=== PATIENT | female | born 1990 | race Caucasian/White ===

== ENCOUNTER 2024-01-26 18:42 | Inpatient (IN) | payer MEDICAID, OTHER ==
[~2024-01-26] VITALS: Ht 157.5 cm; Wt 71.9 kg
[2024-01-26] MEDS: ACETAMINOPHEN TAB 650MG DOSE (2X325MG) PO ONE (20:30)
[2024-01-26 22:27] LABS: URINE PREG TEST NEGATIVE (NEGATIVE)
[2024-01-26] MEDS: PIPERACILLIN/TAZOBACTAM SOD 3.375 GM in D5W MINI-BAG PLUS 50 ML IV ONE (22:50)
[2024-01-26] MEDS: MORPHINE 2 MG/ML 1ML VIAL IV ONE (22:50)
[2024-01-26 22:55] LABS: BASO % 0.2 % (0.0-1.0); EOS # 0.3 10^3/uL (0.0-0.5); EOS % 1.5 % (0.0-3.0); HEMATOCRIT 34.8 % (36.0-47.0); HEMOGLOBIN 11.1 g/dl (12.0-15.5); LYMPH # 2.7 10^3/uL (1.5-5.0); LYMPH % 15.6 % (24.0-44.0); MEAN CORPUSCULAR HEMOGLOBIN 23.8 pg (27.0-33.0); MEAN CORPUSCULAR HGB CONC 31.9 g/dl (32.0-36.5); MEAN CORPUSCULAR VOLUME 74.5 fl (80.0-96.0); MONO # 1.1 10^3/uL (0.0-0.8); MONO % 6.1 % (2.0-8.0); NEUTROPHILS # 13.4 10^3/uL (1.5-8.5); NEUTROPHILS % 76.1 % (36.0-66.0); PLATELET COUNT, AUTOMATED 364 10^3/uL (150-450); RED BLOOD COUNT 4.67 10^6/uL (4.00-5.40); WHITE BLOOD COUNT 17.5 10^3/uL (4.0-10.0)
[2024-01-26] MEDS ORDERED: ISOVUE-370 76% 100ML VIAL As Ordered ONE (23:21)
[2024-01-26 23:23] LABS: ALBUMIN 3.6 G/DL (3.2-5.2); ALKALINE PHOSPHATASE 100 U/L (46-116); ALT/SGPT 11 U/L (7.0-40); AST/SGOT 9 U/L (<34); BILIRUBIN,TOTAL < 0.2 MG/DL (0.3-1.2); BLOOD UREA NITROGEN 10 MG/DL (9-23); CALCIUM LEVEL 8.5 MG/DL (8.5-10.1); CARBON DIOXIDE LEVEL 27 MMOL/L (20-31); CHLORIDE LEVEL 108 MMOL/L (98-107); CREATININE FOR GFR 0.69 MG/DL (0.55-1.30); GLOMERULAR FILTRATION RATE > 60.0 (>60); GLUCOSE, FASTING 94 MG/DL (60-100); SODIUM LEVEL 139 MMOL/L (136-145); TOTAL PROTEIN 6.5 G/DL (5.7-8.2)
[2024-01-26] MEDS: HYDROmorphone 2 MG TAB PO ONE (23:39)
[2024-01-27] VITALS (8 sets, daily range): BP systolic 118–157; BP diastolic 75–89; TEMP 97.2–97.9; O2SAT 93–98
[2024-01-27] MEDS: KETOROLAC 30 MG/ML 1ML VIAL IV ONE (00:54)
[2024-01-27] MEDS ORDERED: BENA25CA4 PO (02:01)
[2024-01-27] MEDS ORDERED: IBUP-1720 PO (02:01)
[2024-01-27] MEDS ORDERED: ACET-897 PO (02:01)
[2024-01-27] MEDS ORDERED: HOME MED LIST COMPLETE! XX SCH (02:05)
[2024-01-27] MEDS: VANCOMYCIN HCL 1,000 MG, VIAL MATE ADAPTER 1 EACH in D5W 250 ML IV STA (04:15)
[2024-01-27] MEDS ORDERED: VANCOMYCIN HCL 750 MG, VIAL MATE ADAPTER 1 EACH in D5W 250 ML IV SCH (04:20)
[2024-01-27] MEDS: PIPERACILLIN/TAZOBACTAM SOD 4.5 GM in D5W MINI-BAG PLUS 50 ML IV SCH (05:15)
[2024-01-27 06:10] LABS: HEMATOCRIT 33.1 % (36.0-47.0); HEMOGLOBIN 10.5 g/dl (12.0-15.5); MEAN CORPUSCULAR HEMOGLOBIN 23.4 pg (27.0-33.0); MEAN CORPUSCULAR HGB CONC 31.7 g/dl (32.0-36.5); MEAN CORPUSCULAR VOLUME 73.7 fl (80.0-96.0); PLATELET COUNT, AUTOMATED 332 10^3/uL (150-450); RED BLOOD COUNT 4.49 10^6/uL (4.00-5.40)
[2024-01-27] MEDS: NS 1,000 ML IV SCH (06:10)
[2024-01-27] MEDS: VANCOMYCIN HCL 500 MG in D5W MINI-BAG PLUS 100 ML IV ONE (06:10)
[2024-01-27 06:53] LABS: ALBUMIN 3.2 G/DL (3.2-5.2); ALKALINE PHOSPHATASE 77 U/L (46-116); ALT/SGPT 12 U/L (7.0-40); AST/SGOT < 8 U/L (<34); BILIRUBIN,TOTAL 0.3 MG/DL (0.3-1.2); BLOOD UREA NITROGEN 8 MG/DL (9-23); CALCIUM LEVEL 8.1 MG/DL (8.5-10.1); CARBON DIOXIDE LEVEL 26 MMOL/L (20-31); CHLORIDE LEVEL 107 MMOL/L (98-107); CREATININE FOR GFR 0.65 MG/DL (0.55-1.30); GLOMERULAR FILTRATION RATE > 60.0 (>60); GLUCOSE, FASTING 87 MG/DL (60-100); POTASSIUM SERUM 3.6 MMOL/L (3.5-5.1); SODIUM LEVEL 137 MMOL/L (136-145); TOTAL PROTEIN 5.9 G/DL (5.7-8.2)
[2024-01-27] MEDS: KETOROLAC 30 MG/ML 1ML VIAL IV PRN (09:23)
[2024-01-27] MEDS: AMPICILLIN SOD/SULBACTAM SOD 3 GM in D5W MINI-BAG PLUS 100 ML IV SCH (11:00)
[2024-01-27] MEDS ORDERED: VANCOMYCIN HCL 1,000 MG, VIAL MATE ADAPTER 1 EACH in D5W 250 ML IV SCH (14:00)
[2024-01-27] MEDS: CALCIUM CARBONATE 500 MG CHEW U/D PO PRN (15:16)
[2024-01-27] MEDS: MEPIVACAINE HCL 3 % 1.7 ML DENTAL CARTRIDGE (CARBOCAINE) As Ordered ONE (15:28)
[2024-01-27] MEDS: LIDOCAINE 2% W/ EPINEPHRINE 1.7 ML DENTAL INJ As Ordered ONE (15:28)
[2024-01-27] MEDS ORDERED: ONDANSETRON 4MG 2ML VIAL As Ordered ONE (16:26)
[2024-01-27] MEDS ORDERED: MIDAZOLAM INJ 2MG/2ML VIAL As Ordered ONE (16:26)
[2024-01-27] MEDS ORDERED: fentaNYL 100 MCG/2 ML INJECTION As Ordered ONE (16:26)
[2024-01-27] MEDS ORDERED: KETOROLAC 60MG 2ML VIAL As Ordered ONE (16:26)
[2024-01-27] MEDS ORDERED: SUCCINYLCHOLINE 100MG/5ML SYRINGE As Ordered ONE (16:27)
[2024-01-27] MEDS ORDERED: propofoL 200 MG/20 ML VIAL As Ordered ONE (16:27)
[2024-01-27] MEDS ORDERED: LIDOCAINE 2% 100MG/5ML SDV (FOR ANES.) As Ordered ONE (16:29)
[2024-01-27] MEDS ORDERED: ROCURONIUM BROMIDE 50MG/5ML VIAL As Ordered ONE (17:05)
[2024-01-27] MEDS ORDERED: UNASYN 3GM VIAL As Ordered ONE (17:15)
[2024-01-27] MEDS ORDERED: HYDROmorphone HCL 2MG/ML 1ML VIAL As Ordered ONE (17:19)
[2024-01-27] MEDS ORDERED: ACETAMINOPHEN 1000MG 100ML IV BAG As Ordered ONE (17:23)
[2024-01-27] MEDS ORDERED: SUGAMMADEX SODIUM 500 MG/5 ML VIAL (BRIDION) As Ordered ONE (17:25)
[2024-01-27] MEDS ORDERED: oxyCODONE 5MG TAB PO PRN (17:45)
[2024-01-27] MEDS ORDERED: diphenhydrAMINE 50MG/ML VIAL IV PRN (17:45)
[2024-01-27] MEDS ORDERED: fentaNYL 100 MCG/2 ML INJECTION IV PRN (17:45)
[2024-01-27] MEDS ORDERED: BACITRACIN OINTMENT 30GM TUBE As Ordered ONE (17:47)
[2024-01-27] MEDS: METOCLOPRAMIDE INJ 10MG/2ML VIAL IV PRN (18:20)
[2024-01-27] MEDS: ONDANSETRON 4MG 2ML VIAL IV PRN (18:21)
[2024-01-27] MEDS: LR 1,000 ML IV SCH (18:50)
[2024-01-27] MEDS: ACETAMINOPHEN TAB 650MG DOSE (2X325MG) PO PRN (20:46)
[2024-01-27] MEDS: MORPHINE 4 MG/ML 1ML VIAL IV ONE (23:45)
[2024-01-28 04:00] VITALS: BP 124/77; TEMP 97.5; O2SAT 98
[2024-01-28 06:33] LABS: BASO % 0.1 % (0.0-1.0); HEMATOCRIT 36.1 % (36.0-47.0); HEMOGLOBIN 11.4 g/dl (12.0-15.5); LYMPH # 0.9 10^3/uL (1.5-5.0); MEAN CORPUSCULAR HEMOGLOBIN 23.4 pg (27.0-33.0); MEAN CORPUSCULAR HGB CONC 31.6 g/dl (32.0-36.5); MEAN CORPUSCULAR VOLUME 74.1 fl (80.0-96.0); MONO # 0.4 10^3/uL (0.0-0.8); MONO % 2.3 % (2.0-8.0); NEUTROPHILS % 92.1 % (36.0-66.0); PLATELET COUNT, AUTOMATED 378 10^3/uL (150-450); RED BLOOD COUNT 4.87 10^6/uL (4.00-5.40); WHITE BLOOD COUNT 18.4 10^3/uL (4.0-10.0)
[2024-01-28 07:06] LABS: BLOOD UREA NITROGEN 9 MG/DL (9-23); CALCIUM LEVEL 9.2 MG/DL (8.5-10.1); CARBON DIOXIDE LEVEL 26 MMOL/L (20-31); CHLORIDE LEVEL 107 MMOL/L (98-107); GLOMERULAR FILTRATION RATE > 60.0 (>60); GLUCOSE, FASTING 143 MG/DL (60-100); MAGNESIUM LEVEL 1.7 MG/DL (1.8-2.4); POTASSIUM SERUM 4.2 MMOL/L (3.5-5.1); SODIUM LEVEL 139 MMOL/L (136-145)
[2024-01-28 08:23] VITALS: BP 138/98; TEMP 97.5; O2SAT 99
[2024-01-28] MEDS: MORPHINE 4 MG/ML 1ML VIAL IV PRN (08:38)
[2024-01-28] MEDS: MAG SULF 1GM/100ML (MAG RUN) 1 GM in IV 1 EA IV ONE (11:36)
[2024-01-28 12:33] VITALS: BP 137/95; TEMP 97.7; O2SAT 98
[2024-01-28] MEDS: ALPRAZolam 0.25 MG TAB PO PRN (14:13)
[2024-01-28 16:00] VITALS: BP 139/95; TEMP 97.2; O2SAT 99
[2024-01-28 19:35] VITALS: BP 140/85; TEMP 97.5; O2SAT 99
[2024-01-28] MEDS: CHLORASEPTIC SPRAY MT PRN (19:52)
[2024-01-29] VITALS (7 sets, daily range): BP systolic 104–159; BP diastolic 74–111; TEMP 97–97.8; O2SAT 18–99
[2024-01-29 07:03] LABS: BASO % 0.2 % (0.0-1.0); EOS # 0.1 10^3/uL (0.0-0.5); EOS % 0.9 % (0.0-3.0); HEMATOCRIT 30.1 % (36.0-47.0); HEMOGLOBIN 9.7 g/dl (12.0-15.5); LYMPH # 3.4 10^3/uL (1.5-5.0); MEAN CORPUSCULAR HGB CONC 32.2 g/dl (32.0-36.5); MEAN CORPUSCULAR VOLUME 74.5 fl (80.0-96.0); MONO # 0.8 10^3/uL (0.0-0.8); MONO % 6.4 % (2.0-8.0); NEUTROPHILS # 8.3 10^3/uL (1.5-8.5); NEUTROPHILS % 65.1 % (36.0-66.0); PLATELET COUNT, AUTOMATED 332 10^3/uL (150-450); RED BLOOD COUNT 4.04 10^6/uL (4.00-5.40); WHITE BLOOD COUNT 12.7 10^3/uL (4.0-10.0)
[2024-01-29 07:15] LABS: BLOOD UREA NITROGEN 9 MG/DL (9-23); CALCIUM LEVEL 8.1 MG/DL (8.5-10.1); CARBON DIOXIDE LEVEL 28 MMOL/L (20-31); CHLORIDE LEVEL 106 MMOL/L (98-107); CREATININE FOR GFR 0.61 MG/DL (0.55-1.30); GLOMERULAR FILTRATION RATE > 60.0 (>60); GLUCOSE, FASTING 94 MG/DL (60-100); MAGNESIUM LEVEL 1.8 MG/DL (1.8-2.4); POTASSIUM SERUM 3.5 MMOL/L (3.5-5.1); SODIUM LEVEL 139 MMOL/L (136-145)
[2024-01-29] MEDS: ALPRAZolam 0.5 MG TAB PO PRN (12:15)
[2024-01-29] MEDS: HEPARIN SOD (PORCINE) 5000UNITS/ML 1ML VIAL/SYRINGE SC SCH (21:14)
[2024-01-30 04:49] VITALS: BP 137/94; TEMP 97.7; O2SAT 97
[2024-01-30] MEDS: ONDANSETRON 4MG 2ML VIAL IV ONE (05:22)
[2024-01-30 06:26] LABS: BASO % 0.3 % (0.0-1.0); EOS # 0.3 10^3/uL (0.0-0.5); EOS % 2.5 % (0.0-3.0); HEMATOCRIT 33.8 % (36.0-47.0); HEMOGLOBIN 10.5 g/dl (12.0-15.5); LYMPH # 2.7 10^3/uL (1.5-5.0); LYMPH % 23.7 % (24.0-44.0); MEAN CORPUSCULAR HEMOGLOBIN 23.2 pg (27.0-33.0); MEAN CORPUSCULAR HGB CONC 31.1 g/dl (32.0-36.5); MEAN CORPUSCULAR VOLUME 74.6 fl (80.0-96.0); MONO # 0.6 10^3/uL (0.0-0.8); MONO % 5.4 % (2.0-8.0); NEUTROPHILS # 7.7 10^3/uL (1.5-8.5); NEUTROPHILS % 67.7 % (36.0-66.0); PLATELET COUNT, AUTOMATED 315 10^3/uL (150-450); RED BLOOD COUNT 4.53 10^6/uL (4.00-5.40); WHITE BLOOD COUNT 11.4 10^3/uL (4.0-10.0)
[2024-01-30 06:58] LABS: BLOOD UREA NITROGEN < 5 MG/DL (9-23); CALCIUM LEVEL 8.2 MG/DL (8.5-10.1); CARBON DIOXIDE LEVEL 28 MMOL/L (20-31); CHLORIDE LEVEL 107 MMOL/L (98-107); CREATININE FOR GFR 0.58 MG/DL (0.55-1.30); GLOMERULAR FILTRATION RATE > 60.0 (>60); GLUCOSE, FASTING 94 MG/DL (60-100); MAGNESIUM LEVEL 1.6 MG/DL (1.8-2.4); POTASSIUM SERUM 3.6 MMOL/L (3.5-5.1); SODIUM LEVEL 139 MMOL/L (136-145)
[2024-01-30] MEDS ORDERED: AUGM12TA11 PO (08:40)
[2024-01-30] MEDS ORDERED: PROBCAP14 PO (08:40)
[2024-01-30] MEDS: MAG SULF 1GM/100ML (MAG RUN) 1 GM in IV 1 EA IV SCH (08:59)
[2024-01-30] MEDS ORDERED: PERCOCET 5MG/325MG TAB PO PRN (11:15)
[2024-01-30 12:00] VITALS: BP 142/96; TEMP 97.5; O2SAT 92
[2024-01-30] MEDS: PERCOCET 5MG/325MG TAB PO PRN (12:53)
[2024-01-30] MEDS: MORPHINE 2 MG/ML 1ML VIAL IV ONE (19:33)
[2024-01-30 20:05] VITALS: BP 148/99; TEMP 97.7; O2SAT 100
[2024-01-30] MEDS: MAGIC MOUTHWASH 5ML ORAL SYRINGE SS PRN (21:36)
[2024-01-31 03:53] VITALS: BP 137/97; TEMP 97; O2SAT 93
[2024-01-31] MEDS ORDERED: AMOX875T2 PO (12:14)
[2024-01-31] MEDS ORDERED: HYDR1TAB33 PO (12:14)
[2024-01-31] MEDS ORDERED: IBUP-1022 PO (12:14)
[2024-01-31] MEDS ORDERED: ACET500T15 PO (12:14)
[2024-01-31] MEDS ORDERED: PERCOCET PO (12:14)
[2024-01-31] MEDS ORDERED: MAGICMW SS (12:14)
[2024-01-31] MEDS: AUGMENTIN 875 MG TAB PO SCH (12:29)
== END 2024-01-31 14:55 | disposition home or self-care (01) | DRG 364 ==
LOC: M ED 18:42 → M ED INP 01-27 04:17 → M MS5PR 01-27 11:45
PROVIDERS: ADMIT Preventive Medicine Undersea and Hyperbaric Medicine; ATTEND Student in an Organized Health Care Education/Training Program
PROC: 0CDWXZ1 Extraction of Upper Tooth, Multiple, External Approach (ICD-10-PCS; 2024-01-27)
PROC: 0C940ZZ Drainage of Buccal Mucosa, Open Approach (ICD-10-PCS; principal; 2024-01-27 17:00)
DX: L03.211 Cellulitis of face (principal); K12.2 Cellulitis and abscess of mouth; L02.01 Cutaneous abscess of face; F41.9 Anxiety disorder, unspecified; K02.9 Dental caries, unspecified; K04.7 Periapical abscess without sinus; J45.909 Unspecified asthma, uncomplicated; F17.200 Nicotine dependence, unspecified, uncomplicated; J95.72 Accidental puncture and laceration of a respiratory system organ or structure during other procedure

== ENCOUNTER 2024-07-03 12:27 | Emergency (ER) | payer MEDICAID, OTHER ==
[~2024-07-03] VITALS: Ht 152.4 cm; Wt 70.4 kg
[~2024-07-03 12:27] MED LIST: ACET-897 PO; ACET500T15 PO; AMOX875T2 PO; AUGM12TA11 PO; BENA25CA4 PO; HYDR1TAB33 PO; IBUP-1022 PO; IBUP-1720 PO; MAGICMW SS; PERCOCET PO; PROBCAP14 PO
[2024-07-03] MEDS ORDERED: XANA1TAB PO (12:49)
[2024-07-03 14:40] VITALS: TEMP 97.4
[2024-07-03] MEDS: ACETAMINOPHEN 500 MG TAB PO ONE (17:16)
[2024-07-03] MEDS ORDERED: diphenhydrAMINE 50MG/ML VIAL IV ONE (18:00)
[2024-07-03] MEDS: hydrOXYzine 50 MG TAB PO STA (18:11)
[2024-07-03] MEDS: METOCLOPRAMIDE INJ 10MG/2ML VIAL IV ONE (18:16)
[2024-07-03] MEDS: NS (Normal Saline) 0.9% 1,000 ML IV ONE (18:16)
[2024-07-03] MEDS: KETOROLAC 30 MG/ML 1ML VIAL IV ONE (18:17)
[2024-07-03 18:30] VITALS: BP 133/74; O2SAT 100
== END 2024-07-03 19:06 | disposition home or self-care (01) ==
LOC: M ED 12:27
DX: S06.0X0A Concussion without loss of consciousness, initial encounter (principal); W20.8XXA Other cause of strike by thrown, projected or falling object, initial encounter; J45.909 Unspecified asthma, uncomplicated; Y92.009 Unspecified place in unspecified non-institutional (private) residence as the place of occurrence of the external cause; Y93.89 Activity, other specified; Y99.9 Unspecified external cause status; Z79.899 Other long term (current) drug therapy; Z79.1 Long term (current) use of non-steroidal anti-inflammatories (NSAID)
CPT/HCPCS: 70450; 72125; 96374; 96375; 99284; J1100; J1885; J2765

== ENCOUNTER 2024-09-12 08:29 | Observation (INO) | payer OTHER, SELFPAY ==
[~2024-09-12] VITALS: Ht 152.4 cm; Wt 65.1 kg
[~2024-09-12 08:29] MED LIST changes: +XANA1TAB PO
[2024-09-12] MEDS ORDERED: LORazepam 2 MG/ML 1ML VIAL IV PRN ×2 (11:45→16:35)
[2024-09-12 11:59] LABS: IONIZED CALCIUM 5.5 MG/DL (4.5-5.3); VENOUS BASE EXCESS -23.9 (-2.0-2.0); VENOUS HCO3 8.2 MMOL/L (23.0-27.0); VENOUS O2 SATURATION 97.9 % (60.0-80.0); VENOUS PARTIAL PRESSURE CO2 40.5 mmHg (38.0-50.0); VENOUS PARTIAL PRESSURE O2 167.4 mmHg (30.0-50.0); VENOUS PH 6.926 UNITS (7.330-7.430); VENOUS STANDARD HCO3 8.1 MMOL/L; VENOUS TOTAL CO2 9.5 MMOL/L (24.0-28.0)
[2024-09-12 12:06] LABS: BASO % 0.2 % (0.0-1.0); HEMATOCRIT 44.2 % (36.0-47.0); HEMOGLOBIN 13.4 g/dl (12.0-15.5); LYMPH # 2.4 10^3/uL (1.5-5.0); MEAN CORPUSCULAR HEMOGLOBIN 23.6 pg (27.0-33.0); MEAN CORPUSCULAR HGB CONC 30.3 g/dl (32.0-36.5); MONO # 1.6 10^3/uL (0.0-0.8); MONO % 6.9 % (2.0-8.0); NEUTROPHILS # 19.5 10^3/uL (1.5-8.5); NEUTROPHILS % 82.4 % (36.0-66.0); PLATELET COUNT, AUTOMATED 437 10^3/uL (150-450); RED BLOOD COUNT 5.67 10^6/uL (4.00-5.40); WHITE BLOOD COUNT 23.7 10^3/uL (4.0-10.0)
[2024-09-12 12:38] LABS: ALBUMIN 5.2 G/DL (3.2-5.2); ALKALINE PHOSPHATASE 93 U/L (35-104); ALT/SGPT 23 U/L (7.0-40); AST/SGOT 22 U/L (<34); BILIRUBIN,DIRECT 0.2 MG/DL (<0.4); BILIRUBIN,TOTAL 0.6 MG/DL (0.3-1.2); BLOOD UREA NITROGEN 12 MG/DL (9-23); CALCIUM LEVEL 11.1 MG/DL (8.5-10.1); CARBON DIOXIDE LEVEL < 10.0 MMOL/L (20-31); CHLORIDE LEVEL 103 MMOL/L (98-107); GLOMERULAR FILTRATION RATE 87.7 (>60); GLUCOSE, FASTING 125 MG/DL (60-100); MAGNESIUM LEVEL 2.5 MG/DL (1.8-2.4); PHOSPHORUS LEVEL 5.4 MG/DL (2.5-4.9); POTASSIUM SERUM 3.4 MMOL/L (3.5-5.1); SODIUM LEVEL 147 MMOL/L (136-145); TOTAL PROTEIN 8.9 G/DL (5.7-8.2)
[2024-09-12] MEDS: ONDANSETRON 4MG 2ML VIAL IV ONE (12:52)
[2024-09-12] MEDS ORDERED: ACET-683 PO (12:58)
[2024-09-12] MEDS ORDERED: IBUP200T46 PO (12:58)
[2024-09-12] MEDS ORDERED: HOME MED LIST COMPLETE! XX SCH ×2 (13:00)
[2024-09-12] MEDS: NS (Normal Saline) 0.9% 1,000 ML IV ONE (13:20)
[2024-09-12 13:53] LABS: KETONE, URINE AUTO RFX 1+ mg/dL (NEGATIVE); LEUKOCYTE ESTERASE UR AUTO RFX NEGATIVE (NEGATIVE); MUCUS, URINE RFX LARGE (NEGATIVE); NITRITE, URINE AUTO RFX NEGATIVE (NEGATIVE); RBC, URINE AUTO RFX 2 /HPF (0-3); SQUAM EPITHELIAL CELL UR AURFX 5 /HPF (0-6)
[2024-09-12 13:54] LABS: WBC, URINE AUTO RFX 32 /HPF (0-3)
[2024-09-12 14:05] LABS: AMPHETAMINES LEVEL URINE NEGATIVE (NEGATIVE); BARBITURATES URINE NEGATIVE (NEGATIVE); METHADONE URINE NEGATIVE (NEGATIVE); OPIATES URINE NEGATIVE (NEGATIVE); PHENCYCLIDINE URINE NEGATIVE (NEGATIVE)
[2024-09-12 14:06] LABS: BENZODIAZEPINES URINE NEGATIVE (NEGATIVE)
[2024-09-12 14:10] LABS: CANNABINOIDS URINE POSITIVE (NEGATIVE); COCAINE METABOLITE URINE POSITIVE (NEGATIVE)
[2024-09-12 15:03] LABS: VENOUS BASE EXCESS -3.3 (-2.0-2.0); VENOUS HCO3 21.6 MMOL/L (23.0-27.0); VENOUS O2 SATURATION 99.2 % (60.0-80.0); VENOUS PARTIAL PRESSURE CO2 38.5 mmHg (38.0-50.0); VENOUS PARTIAL PRESSURE O2 163.1 mmHg (30.0-50.0); VENOUS PH 7.367 UNITS (7.330-7.430); VENOUS STANDARD HCO3 21.8 MMOL/L; VENOUS TOTAL CO2 22.8 MMOL/L (24.0-28.0)
[2024-09-12 16:10] LABS: CPK CREATINE PHOSPHOKINASE 261 U/L (34-145)
[2024-09-12 17:30] LABS: HEMATOCRIT 35.1 % (36.0-47.0); MEAN CORPUSCULAR HEMOGLOBIN 23.6 pg (27.0-33.0); MEAN CORPUSCULAR HGB CONC 32.5 g/dl (32.0-36.5); MEAN CORPUSCULAR VOLUME 72.5 fl (80.0-96.0); PLATELET COUNT, AUTOMATED 374 10^3/uL (150-450); RED BLOOD COUNT 4.84 10^6/uL (4.00-5.40); WHITE BLOOD COUNT 22.5 10^3/uL (4.0-10.0)
[2024-09-12 17:35] LABS: HEMOGLOBIN 11.4 g/dl (12.0-15.5)
[2024-09-12 17:53] VITALS: BP 139/81; TEMP 98.9; O2SAT 97
[2024-09-12 18:10] LABS: ALBUMIN 4.1 G/DL (3.2-5.2); ALKALINE PHOSPHATASE 73 U/L (35-104); ALT/SGPT 19 U/L (7.0-40); AST/SGOT 21 U/L (<34); BILIRUBIN,TOTAL 0.5 MG/DL (0.3-1.2); BLOOD UREA NITROGEN 10 MG/DL (9-23); CALCIUM LEVEL 8.9 MG/DL (8.5-10.1); CARBON DIOXIDE LEVEL 24 MMOL/L (20-31); CHLORIDE LEVEL 109 MMOL/L (98-107); CREATININE FOR GFR 0.87 MG/DL (0.55-1.30); GLOMERULAR FILTRATION RATE > 90.0 (>60); GLUCOSE, FASTING 86 MG/DL (60-100); POTASSIUM SERUM 3.6 MMOL/L (3.5-5.1); SODIUM LEVEL 146 MMOL/L (136-145); TOTAL PROTEIN 7.1 G/DL (5.7-8.2)
[2024-09-12] MEDS: levETIRAcetam INJection 500 MG in DEXTROSE 5% (D5W) MINI-BAG PLU 100 ML IV SCH (18:23)
[2024-09-12] MEDS: D5W/0.9% SODIUM CHLORIDE 1,000 ML IV ONE (18:23)
[2024-09-12] MEDS: KETOROLAC 30 MG/ML 1ML VIAL IV PRN (18:41)
[2024-09-12 19:18] VITALS: BP 122/79; TEMP 98.3; O2SAT 98
[2024-09-12 23:24] VITALS: BP 125/67; TEMP 98.2; O2SAT 97
[2024-09-13 03:56] VITALS: BP 132/67; TEMP 98.2; O2SAT 97
[2024-09-13 06:01] LABS: BASO % 0.1 % (0.0-1.0); EOS # 0.1 10^3/uL (0.0-0.5); EOS % 0.5 % (0.0-3.0); HEMATOCRIT 33.7 % (36.0-47.0); HEMOGLOBIN 10.8 g/dl (12.0-15.5); LYMPH % 11.9 % (24.0-44.0); MEAN CORPUSCULAR HEMOGLOBIN 23.5 pg (27.0-33.0); MEAN CORPUSCULAR VOLUME 73.4 fl (80.0-96.0); MONO # 1.5 10^3/uL (0.0-0.8); MONO % 8.9 % (2.0-8.0); NEUTROPHILS # 12.9 10^3/uL (1.5-8.5); NEUTROPHILS % 78.3 % (36.0-66.0); PLATELET COUNT, AUTOMATED 346 10^3/uL (150-450); RED BLOOD COUNT 4.59 10^6/uL (4.00-5.40); WHITE BLOOD COUNT 16.4 10^3/uL (4.0-10.0)
[2024-09-13 06:31] LABS: ALBUMIN 3.6 G/DL (3.2-5.2); ALKALINE PHOSPHATASE 71 U/L (35-104); ALT/SGPT 18 U/L (7.0-40); AST/SGOT 20 U/L (<34); BILIRUBIN,TOTAL 0.4 MG/DL (0.3-1.2); BLOOD UREA NITROGEN 8 MG/DL (9-23); CALCIUM LEVEL 8.7 MG/DL (8.5-10.1); CARBON DIOXIDE LEVEL 26 MMOL/L (20-31); CHLORIDE LEVEL 109 MMOL/L (98-107); CREATININE FOR GFR 0.81 MG/DL (0.55-1.30); GLOMERULAR FILTRATION RATE > 90.0 (>60); GLUCOSE, FASTING 122 MG/DL (60-100); POTASSIUM SERUM 3.7 MMOL/L (3.5-5.1); SODIUM LEVEL 147 MMOL/L (136-145); TOTAL PROTEIN 6.5 G/DL (5.7-8.2)
[2024-09-13 08:04] VITALS: TEMP 97.5
[2024-09-13 08:05] VITALS: BP 130/60; TEMP 97.5; O2SAT 97
[2024-09-20 15:08] LABS: HYDROXYBUPROPION LEV 4766 ng/ml (600 - 2000); ZOLOFT,SERTRALINE LEVEL 17 ng/mL (.); ZOLOFT,SERTRALINE LEVEL 98 ng/mL (30-200)
== END 2024-09-13 10:36 | disposition left against medical advice (07) ==
LOC: M ED 08:29 → M ED INP 16:34 → M PCU 17:51
PROVIDERS: ADMIT Student in an Organized Health Care Education/Training Program; ATTEND Student in an Organized Health Care Education/Training Program
DX: R41.82 Altered mental status, unspecified (principal); Z53.21 Procedure and treatment not carried out due to patient leaving prior to being seen by health care provider; G40.89 Other seizures; G90.81 Serotonin syndrome; G92.9 Unspecified toxic encephalopathy; F12.10 Cannabis abuse, uncomplicated; F14.10 Cocaine abuse, uncomplicated; T43.221A Poisoning by selective serotonin reuptake inhibitors, accidental (unintentional), initial encounter; E72.20 Disorder of urea cycle metabolism, unspecified; E87.21 Acute metabolic acidosis; R50.9 Fever, unspecified; R39.9 Unspecified symptoms and signs involving the genitourinary system
CPT/HCPCS: 36415; 70450; 80048; 80053; 80076; 80307; 81001; 82140; 82330; 82550; 82803; 83605; 83735; 84100; 85025; 85027; 87086; 87486; 87581; 87633; 87798; 93041; 94760; 96365; 96366; 96375; 96376; 99285; G0480; J1885; J1953; J2405

== ENCOUNTER → 2024-12-03 | Outpatient (REF) | payer MEDICAID, OTHER, SELFPAY ==
[~2024-12-03] MED LIST changes: +ACET-683 PO; +IBUP200T46 PO
[2024-12-03 18:14] LABS: APPEARANCE, URINE CLEAR (CLEAR); BACTERIA, URINE AUTO NEGATIVE (NEGATIVE); BILIRUBIN, URINE AUTO NEGATIVE (NEGATIVE); BLOOD, URINE BLOOD NEGATIVE (NEGATIVE); GLUCOSE, URINE (UA) AUTO NEGATIVE (NEGATIVE); KETONE, URINE AUTO NEGATIVE (NEGATIVE); LEUKOCYTE ESTERASE, URINE AUTO NEGATIVE (NEGATIVE); MUCUS, URINE SMALL (NEGATIVE); NITRITE, URINE AUTO NEGATIVE (NEGATIVE); PROTEIN, URINE AUTO NEGATIVE (NEGATIVE); RBC, URINE AUTO 0 /HPF (0-3); SPECIFIC GRAVITY URINE AUTO 1.014 (1.002-1.035); SQUAMOUS EPITHELIAL CELL UR AU 2 /HPF (0-6); UROBILINOGEN, URINE AUTO 0.2 mg/dL (0.0-2.0); WBC, URINE AUTO 0 /HPF (0-3)
[2024-12-03 19:13] LABS: ALT/SGPT 21 U/L (7.0-40); AST/SGOT 21 U/L (<34); CALCIUM LEVEL 9.0 MG/DL (8.5-10.1); CARBON DIOXIDE LEVEL 21 MMOL/L (20-31); CHLORIDE LEVEL 104 MMOL/L (98-107); CHOLESTEROL LEVEL 204 MG/DL (<200); CHOLESTEROL RISK RATIO 3.31 (<5); CREATININE FOR GFR 0.61 MG/DL (0.55-1.30); GLOMERULAR FILTRATION RATE > 90.0 (>60); IRON (FE) 95 UG/DL (50-170); LDL CHOLESTEROL 122.9 MG/DL (<100); NON-HDL-C 142.5 MG/DL; PERCENT SATURATION 23.6 % (13.2-45.0); POTASSIUM SERUM 3.8 MMOL/L (3.5-5.1); SODIUM LEVEL 138 MMOL/L (136-145); TRIGLYCERIDES LEVEL 98 MG/DL (<150)
[2024-12-03 19:14] LABS: BASO # 0.0 10^3/uL (0.0-0.2); BASO % 0.2 % (0.0-1.0); EOS # 0.4 10^3/uL (0.0-0.5); EOS % 2.8 % (0.0-3.0); LYMPH # 2.6 10^3/uL (1.5-5.0); LYMPH % 20.5 % (24.0-44.0); MONO # 0.9 10^3/uL (0.0-0.8); MONO % 7.2 % (2.0-8.0); NEUTROPHILS # 8.9 10^3/uL (1.5-8.5); NEUTROPHILS % 68.8 % (36.0-66.0); PLATELET COUNT, AUTOMATED 351 10^3/uL (150-450); TOTAL 25(OH) VITAMIN D 13.3 NG/ML (20.0-100.0)
[2024-12-03 19:15] LABS: VITAMIN B12 LEVEL 375 PG/ML (211-911)
[2024-12-03 19:33] LABS: ESTIMATED AVERAGE GLUCOSE 103.0 MG/DL (60-110)
[2024-12-03 19:44] LABS: GC DNA AMPLIFICATION NEGATIVE (NEGATIVE)
[2024-12-03 19:48] LABS: HIV 1&2 SCREEN NEGATIVE (NEGATIVE)
[2024-12-03 19:56] LABS: HEPATITIS C VIRUS ABY INDEX < 0.02 INDEX (<0.8)
== END ==
LOC: M SFHCLERA 13:23
PROVIDERS: ATTEND Internal Medicine
DX: Z00.00 Encounter for general adult medical examination without abnormal findings (principal); D64.89 Other specified anemias